=== PATIENT | male | born 1985 | race Caucasian/White ===

== ENCOUNTER 2023-03-02 07:56 | Day surgery (SDC) | payer MEDICAID ==
[~2023-03-02] VITALS: Ht 177.8 cm; Wt 111.1 kg
[~2023-03-02 07:56] MED LIST: CLINDAMYCIN PHOS 900 MG/ D5W 50 ML PREMIX IV ONE
[2023-03-02 08:55] VITALS: O2SAT 100
[2023-03-02] MEDS ORDERED: LR 1,000 ML IV.SOLN IV ONE (09:51)
[2023-03-02] MEDS ORDERED: NS IRRIG SOLN 1000 ML IR ONE (09:51)
[2023-03-02] MEDS ORDERED: METOCLOPRAMIDE HCL 10 MG/2 ML VIAL ONE (09:51)
[2023-03-02] MEDS ORDERED: MIDAZOLAM HCL 2 MG/2 ML VIAL (VERSED) ONE (09:51)
[2023-03-02] MEDS ORDERED: LIDOCAINE 2%, 20 ML MDV ONE (09:51)
[2023-03-02] MEDS ORDERED: ONDANSETRON HCL 4 MG/2 ML VIAL ONE (09:51)
[2023-03-02] MEDS ORDERED: PROPOFOL 200MG/ 20ML VIAL (DIPRIVAN) IV ONE (09:51)
[2023-03-02] MEDS ORDERED: KETOROLAC TROMETHAMINE 30 MG VIAL ONE (09:51)
[2023-03-02] MEDS ORDERED: fentaNYL CITRATE/PF 100 MCG/2 ML AMP ONE (09:51)
[2023-03-02] MEDS ORDERED: LIDOCAINE/EPI 1% 1:100000 20 ML VIAL ONE (09:51)
[2023-03-02] MEDS ORDERED: ONDANSETRON HCL 4 MG/2 ML VIAL IVP PRN ×2 (11:00)
[2023-03-02] MEDS ORDERED: LR 1,000 ML IV SCH (11:00)
[2023-03-02] MEDS ORDERED: ONDANSETRON 4 MG ODT TAB PO PRN (11:00)
[2023-03-02] MEDS ORDERED: ACETAMINOPHEN 500 MG TABLET PO PRN (11:00)
[2023-03-02] MEDS ORDERED: HYDROcodone/ACETAMIN 5-325 MG TAB (NORCO/ VICODIN) PO PRN (11:00)
[2023-03-02] MEDS ORDERED: HYDROmorphone 2 MG/ML VIAL IVP PRN (11:00)
[2023-03-02] MEDS ORDERED: KETOROLAC TROMETHAMINE 30 MG VIAL IVP PRN (11:00)
[2023-03-02 14:39] VITALS: BP_SYST 118; PULSE 48; RESP 18
== END 2023-03-02 12:20 | disposition home or self-care (01) ==
LOC: SMU 07:56 → SDS 07:56
PROVIDERS: ATTEND Otolaryngology
DX: K13.79 Other lesions of oral mucosa (principal); K11.6 Mucocele of salivary gland; K13.0 Diseases of lips; I10 Essential (primary) hypertension
CPT/HCPCS: 87081; 40812; 88304; J3490; J1885; J2001; J2765; J3465; J2405; J2704; J3010; J7120